=== PATIENT | female | born 1965 | race Hispanic/Latino ===

== ENCOUNTER 2018-05-16 22:08 | Emergency (ER) | payer MEDICAID ==
[2018-05-16 22:15] VITALS: BMI 25.0
[2018-05-16 22:24] VITALS: RESP 18
--- NOTE | 2018-05-16 23:44 | ED PDOC ---
Arrival/HPI - General Chief Complaint: Alcohol Ingestion Time Seen by Provider: 05/16/18 22:28 EM Caveat: Intoxicated - History of Present Illness Narrative History of Present Illness (Text): 05/16/18 23:24 53 year old female with pmhx of anemia, Hypercholesterolemia, and Hypothyroidism presents to the ED via EMS for public intoxication. Patient is not responding to any questions. HPI and ROS limited due to patient's intoxicated state. Past Medical History - Provider Review Nursing Documentation Reviewed: Yes - Infectious Disease Hx of Infectious Diseases: None - Endocrine/Metabolic Hx Hypothyroidism: Yes - Hematological/Oncological Hx Anemia: Yes - Psychiatric Hx Substance Use: No - Surgical History Other/Comment: neck surgery - Anesthesia Hx Anesthesia: Yes Hx Anesthesia Reactions: No - Suicidal Assessment Feels Threatened In Home Enviroment: No Family/Social History - Physician Review Nursing Documentation Reviewed: Yes Family/Social History: No Known Family HX Smoking Status: Heavy Smoker > 10 Cigarettes Daily Hx Alcohol Use: Yes Hx Substance Use: No Allergies/Home Meds Allergies/Adverse Reactions: Allergies lidocaine Allergy (Verified 02/15/16 11:04) Home Medications: Home Meds Medication Instructions Recorded Confirmed Levothyroxine Sodium [Synthroid] 50 mcg PO DAILY 07/24/14 07/24/14 Review of Systems - Physician Review All systems were reviewed & negative as marked: Yes - Review of Systems Systems not reviewed;Unavailable: Intoxicated Physical Exam - Physical Exam Narrative Physical Exam (Text): Gen: VS reviewed, alert, well developed, well nourished, nontoxic, mild distress. Slurred speech. Intoxicated ENT: normal pharynx. Eye: EOMI, PERRL. Neck: no JVD, supple, no adenopathy. CV: regular rate, regular rhythm, no rubs, no murmur, no gallops, S1, S2, pulses equal and strong. Pulm: no distress, clear to auscultation, no wheeze, no rhonchi, breath sounds equal, no rales. Abd: soft, nontender, no guarding, no rebound, no rigidity, normal bowel sounds. Ext: no edema. Skin: good color, no rash, no cyanosis. Psych: Slurred speech. Intoxicated. Able to follow simple commands. Does not respond appropriately to questions, normal affect. Neuro: oriented x 1, CN2-12 intact grossly, motor intact, sensation intact. Vital Signs Reviewed: Yes Vital Signs Temp Pulse Resp BP Pulse Ox 05/16/18 22:23 97.4 F L 70 18 108/74 95 Temperature: Afebrile Blood Pressure: Normal Pulse: Regular Respiratory Rate: Normal Finger Stick Blood Glucose: 116 Medical Decision Making ED Course and Treatment: 05/16/18 23:24 Impression: 53 year old female presents for public intoxication. Plan: -- Head CT -- Labs -- Fingerstick -- Reassess and disposition Prior Visits: Notes and results from previous visits were reviewed. Progress Notes: 05/17/18 04:46 patient is awake and alert, clinically sober, clear speech and steady gait. stable for dc. - RAD Interpretation Narrative RAD Interpretations (Text): EXAM: CT Head without Intravenous Contrast. Electronically signed on May 17, 2018 4:22:24 AM EST by: Neo Quinn M.D IMPRESSION: 1. There is generalized parenchymal atrophy noted as demonstrated by symmetrical dilatation of ventricles and sulci. 2. Chronic periventricular and subcortical microvascular disease is seen. 3. No acute intracranial pathology. Peace Officer: Radiologist - Scribe Statement The provider has reviewed the documentation as recorded by the Scribe Erika Vargas Provider Scribe Attestation: All medical record entries made by the Scribe were at my direction and personally dictated by me. I have reviewed the chart and agree that the record accurately reflects my personal performance of the history, physical exam, medical decision making, and the department course for this patient. I have also personally directed, reviewed, and agree with the discharge instructions and disposition. Disposition/Present on Arrival - Present on Arrival Any Indicators Present on Arrival: No History of DVT/PE: No History of Uncontrolled Diabetes: No Urinary Catheter: No History of Decub. Ulcer: No History Surgical Site Infection Following: None - Disposition Have Diagnosis and Disposition been Completed?: Yes Diagnosis: Alcohol intoxication Disposition: HOME/ ROUTINE Disposition Time: 04:47 Patient Plan: Discharge Condition: STABLE Discharge Instructions (ExitCare): Alcohol Use - When Is Drinking a Problem? Additional Instructions: do not drink to get drunk. be safe out there. Forms: [employer] ([place])
[2018-05-17 04:44] VITALS: BP 116/73; PULSE 76; TEMP 97.8; O2SAT 96
--- NOTE | 2018-05-17 09:53 | CT ---
Date of service: 05/17/2018 PROCEDURE: CT HEAD WITHOUT CONTRAST. HISTORY: confusion COMPARISON: None available. TECHNIQUE: Axial computed tomography images were obtained through the head/brain without intravenous contrast. Supplemental Coronal and Sagittal projections created and reviewed. Radiation dose: Total exam DLP = 1392.82 mGy-cm. This CT exam was performed using one or more of the following dose reduction techniques: Automated exposure control, adjustment of the mA and/or kV according to patient size, and/or use of iterative reconstruction technique. FINDINGS: HEMORRHAGE: No intracranial hemorrhage. BRAIN: No mass effect or edema. Cortical atrophy and chronic microvascular ischemic change. VENTRICLES: Unremarkable. No hydrocephalus. CALVARIUM: Unremarkable. PARANASAL SINUSES: Unremarkable as visualized. No significant inflammatory changes. MASTOID AIR CELLS: Unremarkable as visualized. No inflammatory changes. OTHER FINDINGS: None. IMPRESSION: No acute intracranial abnormalities. No significant findings to account for the clinical presentation. Concordant results (preliminary interpretation) provided by [employer] ([facility]). Procedure Completed: 02:42. Preliminary Report: Dictated and Authenticated: 04:22. Final Interpretation: 09:50.
== END 2018-05-17 05:15 | disposition home or self-care (01) ==
LOC: ED 22:08
DX: F10.129 Alcohol abuse with intoxication, unspecified (principal); D64.9 Anemia, unspecified; E78.00 Pure hypercholesterolemia, unspecified